=== PATIENT | female | born 1955 | race Caucasian/White ===

== ENCOUNTER 2018-04-19 12:36 | Inpatient (IN) | payer OTHER ==
[~2018-04-19] VITALS: Ht 157.5 cm; Wt 90.7 kg
[2018-04-19] MEDS ORDERED: MAGNESIUM HYDROXIDE 30 ML UDC PO PRN (13:30)
[2018-04-19] MEDS ORDERED: TEMAZEPAM 7.5 MG CAPSULE PO PRN (13:30)
[2018-04-19] MEDS ORDERED: LORAZEPAM 0.5 MG TABLET PO PRN (13:30)
[2018-04-19] MEDS ORDERED: MAG HYDROX/AL HYDROX/SIMETH 30 ML UDC PO PRN (13:30)
[2018-04-19] MEDS ORDERED: PRAV40TA PO (13:38)
[2018-04-19] MEDS ORDERED: CARV25TA2 PO (13:38)
[2018-04-19] MEDS ORDERED: COLC0.6C3 PO (13:38)
[2018-04-19] MEDS ORDERED: CLOP75TA15 PO (13:38)
[2018-04-19] MEDS ORDERED: ISOS60TA4 PO (13:38)
[2018-04-19] MEDS ORDERED: HYDR25TA4 PO (13:38)
[2018-04-19] MEDS ORDERED: RANO500T3 PO (13:38)
--- NOTE | 2018-04-19 14:17 | NUR ---
GPS ADMITTING NOTE: PATIENT 63 Y/O FEMALE ADMITTED FROM [facility] ,PLACED ON 5150 HOLD FOR DANGER TO SELF.PER HOLD PT STATED TO ER THAT SHE WAS THE PROBLEM AND SHE WAS GOING TO REMOVE HERSELF THE PROBLEM BY OVERDOSING ON MEDICATIONS.UPON ONE TO ONE ASSESSMENT PATIENT DENIES SI/HI AT THIS TIME ,A/O X3 AMBULATORY , DEPRESSED TEARFUL, CALM. DR BRUNSON NOTIFIED WITH STANDING ORDERS , MRSA DONE. WILL CONTINUE MONITORING FOR SAFETY AND BEHAVIOR Q 15 MIN .
[2018-04-19 14:46] VITALS: BP 155/81
[2018-04-19 16:00] VITALS: BP 154/81
--- NOTE | 2018-04-19 18:11 | NUR ---
GPS RN NOTE: DR. REYES NOTIFIED TO RECONCILED MEDICATIONS.
--- NOTE | 2018-04-19 18:12 | NUR ---
GPS RN NOTE: PT SKIN CLEAN AND INTACT WITH OLD SCAR .
[2018-04-19 20:33] VITALS: BP 125/73
[2018-04-19] MEDS: ATORVASTATIN 40 MG TABLET PO SCH (21:24)
[2018-04-19] MEDS: CARVEDILOL 12.5 MG TABLET PO SCH (21:24)
[2018-04-20] MEDS: ACETAMINOPHEN 325 MG TABLET PO PRN ×2 (03:55→22:32)
[2018-04-20 07:48] LABS: CHOLESTEROL 210 mg/dL (<200); HDL CHOLESTEROL 28 mg/dL (40-60); LDL 125 mg/dL (0-99); TRIGLYCERIDES 345 mg/dL (30-150)
[2018-04-20 07:56] LABS: BILIRUBIN,TOTAL 0.3 mg/dL (0.2-1.0); CALCIUM, SERUM 9.7 mg/dL (8.5-10.1); CREATININE 1.2 mg/dL (0.6-1.3); POTASSIUM 4.4 mmol/L (3.5-5.1); TOTAL PROTEIN, SERUM 7.2 g/dL (6.4-8.2)
[2018-04-20 08:00] VITALS: BP 130/78
[2018-04-20] MEDS: COLCHICINE 0.6 MG TABLET PO SCH (09:00)
[2018-04-20] MEDS: CARVEDILOL 12.5 MG TABLET PO SCH ×2 (09:52→21:54)
[2018-04-20] MEDS: ISOSORBIDE MONONITRATE (30MG) 30 MG TAB.SR.24H PO SCH (09:53)
[2018-04-20] MEDS: CLOPIDOGREL BISULFATE 75 MG TABLET PO SCH (09:53)
[2018-04-20] MEDS: ESCITALOPRAM OXALATE (10 MG) 10 MG TABLET PO SCH (09:53)
[2018-04-20] MEDS: HYDROCHLOROTHIAZIDE 25 MG TABLET PO SCH (09:53)
--- NOTE | 2018-04-20 13:11 | NUR ---
UR Note: BONNY faxed a clinical to Jesse ([phone]) from [facility] to the fax number: .
--- NOTE | 2018-04-20 15:38 | NUR ---
Initial Discharge Plan: Pt currently resides at [address] [place] [address]; ([phone]). Per pt, she would like to return home. SW will work with the pt and the MD regarding appropriate discharge planning. SW will form a safe and proper discharge.
--- NOTE | 2018-04-20 15:39 | NUR ---
BONNY called the pt's son, Hernesto Soares ([phone]), and left a message on his voicemail regarding the pt's initial discharge plan.
[2018-04-20 16:00] VITALS: BP 116/60
--- NOTE | 2018-04-20 17:59 | NUR ---
PT. IS WEARING A NICOTINE TRANSDERMAL PATCH 21 MG ON RIGHT ARM, AND REPORTED SHE WANTED TO GET ANOTHER ONE SINCE IT HELPED HER STOP SMOKING 1/2 PACK A DAY. PT. ALSO STATED A NITROGLYCERIN SUBINGUINAL MEDICATION HELPS HER WITH ANGINA FROM ANXIETY. CALLED [facility] TO REACH DR. REYES, NO ONE ANSWERED THE PHONE WILL FOLLOW UP WITH MD TO FULFILL PT. REQUEST.
--- NOTE | 2018-04-20 18:08 | NUR ---
SUBLINGUAL (SL) ROUTE
[2018-04-20 20:25] VITALS: BP 121/75
[2018-04-20] MEDS: ATORVASTATIN 40 MG TABLET PO SCH (21:55)
--- NOTE | 2018-04-20 22:30 | NUR ---
GPS/FIELD MARKETING LEAD; PT C/O OF HEADACHE AND WANTS TYLENOL. SO TYLENOL 650 MG TABS. PO Q6 PRN GIVEN SWALLOW WITHOUT PROBLEM. WILL MONITOR.
[2018-04-21 08:00] VITALS: BP 145/75
[2018-04-21] MEDS: COLCHICINE 0.6 MG TABLET PO SCH (09:00)
[2018-04-21] MEDS: CLOPIDOGREL BISULFATE 75 MG TABLET PO SCH (09:05)
[2018-04-21] MEDS: ESCITALOPRAM OXALATE (10 MG) 10 MG TABLET PO SCH (09:05)
[2018-04-21] MEDS: NICOTINE PATCH (21MG) 21 MG PATCH.TD24 TD SCH (09:05)
[2018-04-21] MEDS: CARVEDILOL 12.5 MG TABLET PO SCH ×2 (09:05→21:18)
[2018-04-21] MEDS: ISOSORBIDE MONONITRATE (30MG) 30 MG TAB.SR.24H PO SCH (09:05)
[2018-04-21] MEDS: HYDROCHLOROTHIAZIDE 25 MG TABLET PO SCH (09:05)
--- NOTE | 2018-04-21 14:37 | NUR ---
UR Note: BONNY faxed a clinical to Jesse ([phone]) from [facility] to the fax number: .
--- NOTE | 2018-04-21 14:38 | NUR ---
Jesse ([phone]) from [facility] called the SW and informed her that everything he requested in the clinical was present except for the notes from the following day. The SW explained to him that they are not present in the system and that she will fax them over once they are.
--- NOTE | 2018-04-21 15:32 | NUR ---
UR Note: BONNY faxed a clinical again with the updated notes to Jesse ([phone]) from [facility] to the fax number: .
[2018-04-21 16:00] VITALS: BP 123/70
--- NOTE | 2018-04-21 16:23 | NUR ---
BONNY called the pt's , Jersey ([phone]), and discussed the pt returning home upon discharge.
--- NOTE | 2018-04-21 16:24 | NUR ---
BONNY called the pt's daughter, Trista ([phone]), and discussed the pt returning home upon discharge.
--- NOTE | 2018-04-21 19:50 | NUR ---
RN INITIAL NOTES: RECEIVED PT, CURRENTLY IN DINING AREA, CAME TO VISIT PT. PT IS A/O X3, PLEASANT, CALM AND COOPERATIVE, DENIES ANY SI/HI AT THIS TIME. MED COMPLIANT. DENIES ANY PAIN OR DISCOMFORT AT THIS TIME. PT IS AMBULATORY, CONTINENT. SAFETY PRECAUTIONS FOR FALL INITIATED, WILL MONITOR PT FOR SAFETY [id number] AND FOR ANY CHANGES IN BEHAVIOR
[2018-04-21 20:00] VITALS: BP 146/56
[2018-04-21 20:25] VITALS: BP 146/86
[2018-04-21 21:15] VITALS: BP 148/75
[2018-04-21] MEDS: ACETAMINOPHEN 325 MG TABLET PO PRN (21:18)
--- NOTE | 2018-04-21 21:21 | NUR ---
PRN TYLENOL: PT C/O ROOM BEING TOO COLD AND THAT IT GIVES HER A HEAD ACHE, PT REQUESTING FOR TYLENOL, PRN TYLENOL 650 MG TAB PO ADMINISTERED TO THE PT AT THIS TIME, BLANKET PROVIDED AND ROOM TEMP CHANGED. WILL CONTINUE TO MONITOR AND REASSESS
[2018-04-21] MEDS: ATORVASTATIN 40 MG TABLET PO SCH (21:24)
--- NOTE | 2018-04-22 02:01 | NUR ---
prn restoril: pt c/o that she's having a hard time going back to sleep, pt requested for sleeping pill. prn restoril administered at this time. will continue to monitor and reassess
--- NOTE | 2018-04-22 06:49 | NUR ---
rn closing notes: pt in bed, still feeling depressed.remains to be medication compliant. cooperative, able to verbalize feeling of sadness.pt is continent and ambulatory. vs remains stable, needs attended will continue to monitor pt safety [id number] and for any changes in behavior. will endorse to day rn for continuity of care.
[2018-04-22 08:00] VITALS: BP 129/79
[2018-04-22] MEDS: CARVEDILOL 12.5 MG TABLET PO SCH (08:01)
[2018-04-22] MEDS: NICOTINE PATCH (21MG) 21 MG PATCH.TD24 TD SCH (08:01)
[2018-04-22] MEDS: HYDROCHLOROTHIAZIDE 25 MG TABLET PO SCH (08:01)
[2018-04-22] MEDS: ISOSORBIDE MONONITRATE (30MG) 30 MG TAB.SR.24H PO SCH (08:02)
[2018-04-22] MEDS: CLOPIDOGREL BISULFATE 75 MG TABLET PO SCH (08:02)
[2018-04-22] MEDS: ESCITALOPRAM OXALATE (10 MG) 10 MG TABLET PO SCH (08:02)
[2018-04-22] MEDS: COLCHICINE 0.6 MG TABLET PO SCH (08:04)
[2018-04-22] MEDS ORDERED: LISINOPRIL (10MG) 10 MG TABLET PO SCH (09:00)
--- NOTE | 2018-04-22 11:09 | NUR ---
Jesse ([phone]) from [facility] called the SW and informed her that the pt's case would go to a doc to doc review because she does not seem to meet inpatient criteria anymore.
--- NOTE | 2018-04-22 11:10 | NUR ---
Tiffany ([phone]) called from [facility] and stated that she is the pts watch caser. She stated that she would like the most recent clinical sent to her at the fax number: [phone].
--- NOTE | 2018-04-22 11:33 | NUR ---
UR Note: BONNY faxed a clinical to Tiffany ([phone]) called from [facility] at the fax number: [phone].
--- NOTE | 2018-04-22 14:31 | NUR ---
BONNY called the pt's daughter, Trista ([phone]), and informed her that the pt is being discharged today and discussed her picking the pt up at 7pm.
--- NOTE | 2018-04-22 15:34 | NUR ---
BONNY called Jesse ([phone]) from [facility] and asked for the pt's aftercare appointments on his voicemail.
[2018-04-22 16:00] VITALS: BP 114/59
--- NOTE | 2018-04-22 16:28 | NUR ---
Discharge Note: Pt was discharged home to [address] [place] [address]; ([phone]). Pt was picked up by her daughter, Trista ([phone]), at around 7pm. Upon discharge, the pt was in a euthymic mood and had a pleasant and uplifted affect. The pt denied having suicidal or homicidal ideation as well as visual and auditory hallucinations. Pt was provided with three smoking cessations referrals that are listed below. Pt will be under the care of a psychiatrist referred to her, Dr. Quiroga, located at [address] [address], [place] [address]; and her paper and prints restorer, Dr. Kendall Wong, located at [facility], [place] [address]; . Smoking Cessation Referrals: [employer] 800-LUNGUSA [employer] [phone]
--- NOTE | 2018-04-22 16:30 | NUR ---
gps insurance adjustor: notes dr. goff notified and made aware re: d'c home today with order to continue home medications. pt aware and daughter to pick her up at 1900 tonight.
--- NOTE | 2018-04-22 16:40 | NUR ---
DR. DOSS GAVE AN ORDER TO D/C HOLD AND D/C HOME AND TO FOLLOW UP WITH PSYCH AND MEDICAL DOCTORS.
--- NOTE | 2018-04-22 16:45 | NUR ---
gps business analytics director: notes discharged instructions given with prescription to pt and verbalized understanding. clark (manager social work) provided a f/u care to psychologist and food and beverage operations manager for f/u and also pt will f/u with her psychiatrist as stated. pt stable for discharge. denies si/hi at this time. denies auditory/visual hallucinations. will continue to monitor.
--- NOTE | 2018-04-22 20:00 | NUR ---
pt is a/o x 3 , verbally responsive, no distress, no sob noted, stable, pt picked up by daughter rei , all discharge papers given to dtr/ pt. all belongings sent with the pt. truss builder assisted pt to the wheelchair and assisted to lobby. pt left hospital safely.
--- NOTE | 2018-04-22 20:00 | NUR ---
PT FOR DISCHARGE, NO SI/ HI NOTED AT THIS TIME, STABLE. NO DISTRESS, NO SOB NOTED .
== END 2018-04-22 20:00 | disposition home or self-care (01) | DRG 885 ==
LOC: GPS 12:43
PROVIDERS: ADMIT Psychiatry & Neurology Psychiatry; ATTEND Psychiatry & Neurology Psychiatry
DX: F33.2 Major depressive disorder, recurrent severe without psychotic features (principal); R45.851 Suicidal ideations; E78.5 Hyperlipidemia, unspecified; E11.9 Type 2 diabetes mellitus without complications; I10 Essential (primary) hypertension; M19.90 Unspecified osteoarthritis, unspecified site; Z95.1 Presence of aortocoronary bypass graft; Z98.61 Coronary angioplasty status; I25.10 Atherosclerotic heart disease of native coronary artery without angina pectoris; M10.9 Gout, unspecified; F17.200 Nicotine dependence, unspecified, uncomplicated; Z90.49 Acquired absence of other specified parts of digestive tract; Z79.899 Other long term (current) drug therapy
CPT/HCPCS: 36415; 80053-TC; 80061-TC; 87081-TC